=== PATIENT | male | born 1945 | race Caucasian/White ===

== ENCOUNTER 2024-01-23 09:50 | Day surgery (SDC) | payer BC, MEDICARE ==
[~2024-01-23] VITALS: Ht 175.3 cm; Wt 86.3 kg
[~2024-01-23 09:50] MED LIST: DONE10TA19 PO; EZET10TA48 PO; OMEP20CA16 PO; PROP20TA6 PO; RIVA20TA PO; ROSU10TA28 PO
[2024-01-23 10:32] VITALS: BP 131/58; PULSE 63; RESP 16
[2024-01-23] MEDS ORDERED: diphenhydrAMINE 50 mg/ml inj ONE (11:40)
[2024-01-23] MEDS ORDERED: LIDOcaine 2% Viscous 15ml cup ONE (11:40)
[2024-01-23] MEDS ORDERED: fentaNYL/PF 50MCG/1 ML 2ML syringe ONE (11:40)
[2024-01-23] MEDS ORDERED: MIDAZolam 1 MG/ML 5ML VIAL ONE (11:40)
[2024-01-23 12:02] VITALS: BP 100/53; PULSE 59; RESP 14; O2SAT 98
[2024-01-23 12:12] VITALS: BP 105/50; PULSE 59; RESP 12; O2SAT 94
[2024-01-23 12:22] VITALS: BP 116/67; PULSE 70; RESP 13; O2SAT 95
[2024-01-23 12:32] VITALS: BP 119/70; PULSE 71; RESP 20; O2SAT 96
== END 2024-01-23 12:40 | disposition home or self-care (01) ==
LOC: GI LAB 09:50
PROVIDERS: ATTEND Internal Medicine Gastroenterology
DX: R13.10 Dysphagia, unspecified (principal); K22.2 Esophageal obstruction; K31.89 Other diseases of stomach and duodenum; K22.710 Barrett's esophagus with low grade dysplasia; K31.A21 Gastric intestinal metaplasia with low grade dysplasia
CPT/HCPCS: 43239; J2250; J3010; J7030; Z7512; 99152; A4620; J1200